=== PATIENT | female | born 1975 | race Caucasian/White ===

== ENCOUNTER 2017-01-08 20:06 | Emergency (ER) | payer BC ==
[2017-01-08] MEDS ORDERED: Ketorolac INJ* 30 MG/ML 1 ML VIAL IV ONE (23:21)
[2017-01-08] MEDS ORDERED: NS 0.9% 1000 ML* 1,000 ML IV ONE (23:21)
[2017-01-08 23:38] LABS: Hematocrit 37 % (35-47); Hemoglobin 12.4 g/dl (12.0-16.0); Mean Corpuscular HGB Conc 33 g/dl (31-36); Mean Corpuscular Hemoglobin 28 pg (27-31); Mean Corpuscular Volume 86 fL (80-97); Mean Platelet Volume 8 um3 (7.4-10.4); Red Blood Count 4.36 10^6/ul (4.0-5.4); Red Cell Distribution Width 14 % (10.5-15); White Blood Count 15.9 10^3/ul (3.5-10.8)
--- NOTE | 2017-01-08 23:52 | ED ---
Latoya Torres Edward, scribed for Antonio Gustafson MD on 01/08/17 at 2316 . GI/ HPI - HPI Summary HPI Summary: 41 y/o presents to ED c/o R flank pain starting 1 day ago. The pain is described as a soreness and has gotten worse since it started. The pain was aggravated by standing and ambulating today. Patient rates the pain at a 5/10 at triage. Pt went to [facility] and was dx with a kidney stone earlier today. Denies nausea. PMHx kidney stones. - History of Current Complaint Chief Complaint: EDFlankPain Time Seen by Provider: 01/08/17 23:14 Stated Complaint: RT SIDE PAIN Hx Obtained From: Patient Onset/Duration: Started Days Ago, Still Present Timing: Lasting Days Severity: Mild Current Severity: Moderate Pain Intensity: 5 Location of Pain: Flank - R side Pain Characteristics: Other: - Soreness Associated Signs and Symptoms: Positive: Flank Pain - R side. Negative: Nausea - Allergy/Home Medications Allergies/Adverse Reactions: Allergies Allergy/AdvReac Type Severity Reaction Status Date / Time Codeine Allergy GI Upset Verified 01/08/17 20:50 Sulfa Antibiotics Allergy Hives Verified 01/08/17 20:50 PMH/Surg Hx/FS Hx/Imm Hx Previously Healthy: No History: Reports: Hx Kidney Stones, Other Problems/Disorders - UTI many years ago - Surgical History Surgery Procedure, Year, and Place: Infectious Disease History: Denies: Traveled Outside the [place] in Last 30 Days - Family History Known Family History: Negative: Cardiac Disease, Hypertension, Diabetes - Social History Occupation: Employed Full-time Lives: With Family Alcohol Use: None Hx Substance Use: No Substance Use Type: Reports: None Review of Systems Constitutional: Negative Eyes: Negative ENT: Negative Cardiovascular: Negative Respiratory: Negative Gastrointestinal: Negative Negative: Nausea Positive: flank pain - R side Musculoskeletal: Negative Skin: Negative Neurological: Negative Psychological: Normal All Other Systems Reviewed And Are Negative: Yes Physical Exam Triage Information Reviewed: Yes Vital Signs On Initial Exam: Initial Vitals Temp Pulse Resp Pulse Ox 98.2 F 111 16 98 01/08/17 20:40 01/08/17 20:40 01/08/17 20:40 01/08/17 20:40 Vital Signs Reviewed: Yes Appearance: Positive: Well-Appearing, Pain Distress - mild discomfort Skin: Positive: Warm Head/Face: Positive: Normal Head/Face Inspection Eyes: Positive: [place] ENT: Positive: Hearing grossly normal Neck: Positive: Supple Respiratory/Lung Sounds: Positive: Clear to Auscultation, Breath Sounds Present Cardiovascular: Positive: RRR Abdomen Description: Positive: Nontender, Soft. Negative: CVA Tenderness (R), CVA Tenderness (L) Bowel Sounds: Positive: Present Musculoskeletal: Positive: Strength/ROM Intact Neurological: Positive: Alert, Oriented to Person Place, Time, Normal Gait Psychiatric: Positive: Affect/Mood Appropriate Diagnostics - Vital Signs Vital Signs Temp Pulse Resp BP Pulse Ox 01/08/17 22:55 98.2 F 79 16 117/68 100 01/08/17 20:40 98.2 F 111 16 98 - Laboratory Lab Results: Lab Results 01/08/17 Range/Units 23:25 WBC 15.9 H (3.5-10.8) 10^3/ul RBC 4.36 (4.0-5.4) 10^6/ul Hgb 12.4 (12.0-16.0) g/dl Hct 37 (35-47) % MCV 86 (80-97) fL MCH 28 (27-31) pg MCHC 33 (31-36) g/dl RDW 14 (10.5-15) % Plt Count 288 (150-450) 10^3/ul MPV 8 (7.4-10.4) um3 Neut % (Auto) 73.5 (38-83) % Lymph % (Auto) 17.1 L (25-47) % [place] % (Auto) 7.4 (1-9) % Eos % (Auto) 0.9 (0-6) % Baso % (Auto) 1.1 (0-2) % Absolute Neuts (auto) 11.7 H (1.5-7.7) 10^3/ul Absolute Lymphs (auto) 2.7 (1.0-4.8) 10^3/ul Absolute Monos (auto) 1.2 H (0-0.8) 10^3/ul Absolute Eos (auto) 0.1 (0-0.6) 10^3/ul Absolute Basos (auto) 0.2 (0-0.2) 10^3/ul Absolute Nucleated RBC 0 10^3/ul Nucleated RBC % 0 Result Diagrams: 01/08/17 23:25 01/08/17 23:25 Lab Statement: Any lab studies that have been ordered have been reviewed, and results considered in the medical decision making process. - Ultrasound No standard instances Ultrasound Interpretation: Positive (See Comments) - MILD RIGHT HYDRONEPHROSIS MAY BE DUE TO A NONVISUALIZED URETERAL STONE Ultrasound Interpretation Completed By: Radiologist Re-Evaluation - Re-Evaluation First Eval Comment: case d/w dr charlton, rec u/s to assess jet flow, may be d/c home f/u office GIGU Course/Dx - Course Assessment/Plan: 41 y/o presents to ED c/o R flank pain starting 1 day ago. The pain is described as a soreness and has gotten worse since it started. The pain was aggravated by standing and ambulating today. Patient rates the pain at a 5/ 10 at triage. Pt went to [facility] and was dx with a kidney stone earlier today. Denies nausea. PMHx kidney stones. RENAL US SHOWS MILD RIGHT HYDRONEPHROSIS MAY BE DUE TO A NONVISUALIZED URETERAL STONE. Pt will be d/c home with f/u with Dr. Charlton (Urology) in the morning. - Diagnoses Provider Diagnoses: Renal colic Discharge - Discharge Plan Condition: Improved Disposition: HOME Prescriptions: Levofloxacin TAB* [Levaquin TAB*] 250 mg PO DAILY #7 tab Patient Education Materials: Renal Colic (ED) Referrals: Albert Charlton MD [Medical Doctor] - 1 Day (Please f/u in the morning) The documentation as recorded by the Latoya chaves Edward accurately reflects the service I personally performed and the decisions made by , Antonio Gustafson MD.
[2017-01-08 23:56] LABS: ALT 16 U/L (7-52); AST 14 U/L (13-39); Albumin 4.2 g/dL (3.2-5.2); Alkaline Phosphatase 53 U/L (34-104); BUN/Creatinine Ratio 13.3 (8-20); Blood Urea Nitrogen 12 mg/dL (6-24); C Reactive Protein 4.06 mg/L (< 5.00); CO2 Carbon Dioxide 26 mmol/L (22-32); Calcium 9.2 mg/dL (8.6-10.3); Chloride 104 mmol/L (101-111); EGFR African American 89.2 (>60); EGFR Non-African American 69.3 (>60); Glucose 87 mg/dL (70-100); Magnesium 2.1 mg/dL (1.9-2.7); Potassium 3.9 mmol/L (3.5-5.0); Total Protein 7.2 g/dL (6.4-8.9)
[2017-01-09 00:35] LABS: Anion Gap 5 mmol/L (2-11); Sodium 135 mmol/L (133-145)
[2017-01-09 01:23] LABS: Urine Bacteria Absent (Absent); Urine Bilirubin Negative (Negative); Urine Glucose 1+(50 mg/dL) (Negative); Urine Nitrite Negative (Negative)
[2017-01-09] MEDS ORDERED: Levofloxacin 500 MG IVPREMIX(* 500 MG/100 ML BAG IVPB ONE (01:29)
[2017-01-09] MEDS ORDERED: NS 0.9% 1000 ML* 1,000 ML IV ONE (02:16)
[2017-01-09] MEDS ORDERED: oxyCODONE/Acetamin 5/325 MG* TAB PO ONE (03:58)
[2017-01-09 04:14] VITALS: BP 105/55
--- NOTE | 2017-01-09 08:06 | RAD ---
Indication: Right flank pain. Real-time sonography of the right kidney was performed. The right kidney measures 11.4 cm x 5.1 cm x 5.5 cm. Right hydronephrosis is noted. Bilateral ureteral jets are noted. Bilateral ureteral jets are noted. IMPRESSION: Right hydronephrosis. Bilateral ureteral jets are identified.
== END 2017-01-09 04:14 | disposition home or self-care (01) ==
LOC: ED 20:06
DX: N23 Unspecified renal colic (principal); N13.30 Unspecified hydronephrosis; Z32.02 Encounter for pregnancy test, result negative; Z87.442 Personal history of urinary calculi; Z88.5 Allergy status to narcotic agent; Z88.2 Allergy status to sulfonamides
CPT/HCPCS: 36415; 76775; 80053; 81003; 81015; 83605; 83735; 84702; 85025; 86140; 87086; 96361; 96365; 96375; 99283; A9270-GY; J1885; J1956

== ENCOUNTER 2017-01-11 10:34 | Day surgery (SDC) | payer BC ==
--- NOTE | 2017-01-10 14:43 | HP ---
CC: Dr. Kirsten Harp * ADMITTING HISTORY AND PHYSICAL: DATE OF ADMISSION: 01/11/17 - [facility] ADMITTING DIAGNOSES: 1. Right hydronephrosis. 2. Calculus, right mid ureter. 3. Left renal calculus. PLANNED PROCEDURE: Right ureteroscopy, possible laser, and stent insertion (to be followed in the near future by left stent insertion and left renal calculus lithotripsy). SURGEON: Dr. Charlton. 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 She was noted to have an approximately 7-mm calculus at the junction of the [id number] right ureter, which has been persistent in the same location and she is now being brought in for right ureteroscopy, possible laser, and stent. In addition, she has a 1-cm calculus in the left renal pelvis, which is currently asymptomatic, but will require left stent insertion and lithotripsy in the near future. PAST MEDICAL HISTORY: Significant for kidney stones 5 or 6 years ago. PAST SURGICAL HISTORY: Significant for x2. MEDICATIONS: On admission, Vicodin p.r.n. ALLERGIES AND INTOLERANCES: CODEINE and SULFA (hives with both). FAMILY HISTORY: Significant in that her brother has had kidney stones. SMOKING HISTORY: She is a nonsmoker. REVIEW OF SYSTEMS: She is otherwise in excellent health. There is no history of diabetes mellitus or any other major systemic illness. She denies any chest pain or shortness of breath. PHYSICAL EXAMINATION GENERAL: Reveals a pleasant, uncomfortable-appearing young lady. VITAL SIGNS: Blood pressure is 120/80; pulse 70 per minute, regular; temperature 97.5; oxygen saturation 98% on room air. LUNGS: Clear bilaterally. CARDIOVASCULAR: Regular rate and rhythm. S1, S2. ABDOMEN: Soft with right flank tenderness. IMPRESSION AND PLAN: I reviewed the imaging studies from [place] and the ultrasound done in my office and had a detailed discussion with the patient and her regarding the management options. I discussed trying to continue conservative therapy, but because of the degree of pain and the fact that the stone has not made any significant distal progress, she would like to proceed with right ureteroscopy. I also discussed the calculus in the left kidney and the procedure of left stent insertion and lithotripsy, which would be done after resolution of the right-sided stone. [id number]/[facility] #: [id number] [facility]
[~2017-01-11 10:34] MED LIST: Buffered Lidocaine 0.9% SYRIN* 5 ML/SYR SYRINGE INTRADERM ONE; Dexamethasone IV* 4 MG/ML 1 ML (4 MG) IV SLOW PU ONE; Famotidine IV* 10 MG/ML 2 ML (20 mg) IV ONE
[2017-01-11] MEDS ORDERED: Famotidine IV* 10 MG/ML 2 ML (20 mg) ONE (10:41)
[2017-01-11] MEDS ORDERED: Dexamethasone IV* 4 MG/ML 1 ML (4 MG) ONE (10:41)
[2017-01-11] MEDS ORDERED: cefTRIAXone(*) 2 GM ADDV.VIAL IVPB ONE (10:42)
[2017-01-11] MEDS ORDERED: Buffered Lidocaine 0.9% SYRIN* 5 ML/SYR SYRINGE ONE (10:42)
[2017-01-11] MEDS ORDERED: Midazolam* 1 MG/ML 5 ML VIAL (5 MG) ONE (11:13)
[2017-01-11] MEDS ORDERED: Iohexol 180 (CONTRAST) 10 ML SDV IV ONE (11:24)
[2017-01-11] MEDS ORDERED: Ondansetron INJ* 2 MG/ML VIAL ONE (11:39)
[2017-01-11] MEDS ORDERED: Ketorolac INJ* 30 MG/ML 1 ML VIAL ONE (11:39)
[2017-01-11] MEDS ORDERED: Chloroprocaine 2%* 20 ML VIAL ONE (11:39)
[2017-01-11] MEDS ORDERED: DiMENhydriNATE IV* 50 MG/ML VIAL IV PUSH PRN (12:00)
[2017-01-11] MEDS ORDERED: oxyCODONE/Acetamin 5/325 MG* TAB PO PRN (12:00)
[2017-01-11] MEDS ORDERED: Ondansetron INJ* 2 MG/ML VIAL IV PRN (12:00)
[2017-01-11] MEDS ORDERED: fentaNYL* 50 MCG/ML 2 ML VIAL (100 MCG VIAL) IV PRN (12:00)
[2017-01-11] MEDS ORDERED: Scopolamine 1.5 mg* PATCH TRANSDERM PRN (12:00)
[2017-01-11] MEDS ORDERED: Propofol* 10 MG/ML 20 ML BTL IV PUSH ONE (12:19)
[2017-01-11] MEDS ORDERED: Solifenacin(NF) 5 MG TAB PO ONE (14:00)
--- NOTE | 2017-01-11 14:07 | RAD ---
INDICATION: Right ureteral lithotripsy and stent placement COMPARISON: KUB January 10, 2017 FINDINGS: 12 seconds of fluoroscopy were provided for the urology department. Fluoroscopic spot imaging of the abdomen were obtained for operative control and show right ureteral stent placement . CPT II Codes: 6045F (fluoro time doc)
[2017-01-11 14:58] VITALS: BP 126/79
--- NOTE | 2017-01-11 15:58 | RAD ---
Indication: Stent insertion Single view of the abdomen demonstrates right ureteral stent in place. Calculi overlying the midportion of the left kidney. IMPRESSION: Right ureteral stent is in place.
--- NOTE | 2017-01-12 03:02 | OP ---
CC: Kirsten Harp MD * DATE OF OPERATION: 01/11/17 - [facility] DATE OF : 77 SURGEON: Albert Charlton MD. ANESTHESIOLOGIST: Dr. Keller. ANESTHESIA: Spinal. PRE-OP DIAGNOSES: 1. Right hydronephrosis 2. Obstructing calculus, right ureter. POST-OP DIAGNOSES: 1. Right hydronephrosis 2. Obstructing calculus, right ureter. 3. Stricture, right ureter. OPERATIVE PROCEDURE: Cystoscopy, right retrograde pyelogram, right ureteroscopy , laser lithotripsy of right ureteral calculus, removal of calculus fragments, and right stent insertion. INDICATIONS: Padmaja Godwin is a 41-year-old lady who was evaluated for an obstructing right ureteral calculus. In addition, she has a large left renal calculus, which will require treatment in the near future. COMPLICATIONS: None. STENT USED: 8.5-Hong Konger 28 cm silicone stent, right ureter. POSTOPERATIVE CONDITION: Stable. OPERATIVE FINDINGS: 1. Normal-appearing bladder. 2. High-grade obstruction right ureter secondary to approximately 1 cm calculus junction of right mid and distal ureter with stricture below the site of calculus. DESCRIPTION OF PROCEDURE: After induction of spinal anesthesia, the patient was placed in dorsal lithotomy position. Sequential compression devices were in place and functioning. Initial cystoscopy revealed a normal-appearing bladder. A guidewire was introduced into the right ureter. Retrograde pyelogram revealed right hydronephrosis with significantly dilated tortuous proximal right ureter suggesting that the obstructive process has been going on for a while. A 6-H[place] Konger semi-rigid ureteroscope was introduced and advanced under direct vision. At the junction of the mid and distal right ureter, a fairly large 9-10 mm calculus was noted to be impacted with surrounding inflammatory response. Just below the site of impaction, there was a stricture in the ureter, which is probably what kept the stone from migrating distally. Using a 550 micron Holmium laser, the calculus was successfully broken up into multiple fragments and all of the sizable fragments were removed. The ureteroscope was advanced into the proximal ureter to make sure there were no additional sizable fragments and none were noted. An 8.5 [place]er 28 cm silicone stent was introduced and positioned under fluoroscopy with good proximal and distal positioning obtained. The patient tolerated the procedure satisfactorily and was transferred back to the recovery area in stable condition. [id number]/[facility] #: [id number] [facility]
[2017-01-14] MEDS ORDERED: Scopolomine PATCH Remove* 1 NOTE MISC PATCH OFF ONE (12:01)
== END 2017-01-11 14:58 | disposition home or self-care (01) ==
LOC: OR 10:34
PROVIDERS: ATTEND Urology
DX: N13.2 Hydronephrosis with renal and ureteral calculous obstruction (principal); N13.5 Crossing vessel and stricture of ureter without hydronephrosis
CPT/HCPCS: 74000; 74420; 81025; 82365; 88300; C1876; J0696; J1100; J1580; J1885; J2250; J2400; J2405; J2704

== ENCOUNTER 2017-04-01 07:30 | Day surgery (SDC) | payer BC ==
--- NOTE | 2017-03-28 21:36 | HP ---
CC: Dr. Kirsten Harp* ADMITTING HISTORY AND PHYSICAL: DATE OF ADMISSION: 04/01/17 PREOPERATIVE DIAGNOSIS: Left renal calculus. PLANNED PROCEDURE: Shockwave lithotripsy, left renal calculus and left stent insertion. SURGEON: Dr. Charlton. HISTORY OF PRESENT ILLNESS: Padmaja Godwin is a 41-year-old lady with a history of bilateral renal calculi. She had previously been successfully treated for an obstructing calculus in the right ureter. Recent ultrasound had revealed a 1.2 cm calculus in the mid pole of the left kidney and she is now being brought in for treatment of the same. PAST MEDICAL HISTORY: Significant for renal calculi. PAST SURGICAL HISTORY: Significant for right ureteroscopy and C section x2. MEDICATIONS ON ADMISSION: None. ALLERGIES AND INTOLERANCES: SULFA and CODEINE (hives). SMOKING HISTORY: Nonsmoker. REVIEW OF SYSTEMS: She is otherwise in excellent health. There is no history of any other major systemic illness. She denies any chest pain or shortness of breath. PHYSICAL EXAMINATION GENERAL: Reveals a pleasant healthy-appearing, young lady. VITAL SIGNS: Blood pressure is 118/78, pulse 70 per minute, temperature 97.7, oxygen saturation 99% on room air. LUNGS: Clear bilaterally. CARDIOVASCULAR: Regular rate and rhythm, S1, S2. ABDOMEN: Soft with mild left flank tenderness. IMPRESSION: An 41-year-old lady with a 1.2 cm calculus in the left kidney. I have discussed the procedure of lithotripsy including possible risks of bleeding , infection, incomplete fragmentation. PLAN: Plan is for left stent insertion and shockwave lithotripsy of left renal calculus. [id number]/[facility] #: [id number] [facility]
[~2017-04-01 07:30] MED LIST changes: +Buffered Lidocaine 0.9% SYRIN* 5 ML/SYR SYRINGE ONE; +Dexamethasone IV* 4 MG/ML 1 ML (4 MG) ONE; +Famotidine IV* 10 MG/ML 2 ML (20 mg) ONE; +cefTRIAXone(*) 2 GM ADDV.VIAL IVPB ONE
[2017-04-01] MEDS ORDERED: Iohexol 180 (CONTRAST) 10 ML SDV IV ONE (08:47)
[2017-04-01] MEDS ORDERED: fentaNYL* 50 MCG/ML 2 ML VIAL (100 MCG VIAL) ONE ×2 (08:52→10:58)
[2017-04-01] MEDS ORDERED: Midazolam* 1 MG/ML 2 ML VIAL (2 MG) ONE (08:52)
--- NOTE | 2017-04-01 09:05 | RAD ---
INDICATION: Left renal calculus COMPARISON: Similar examination January 11, 2017 TECHNIQUE: 2 views the abdomen were obtained. FINDINGS: There is been interval removal of a right-sided ureteral stent. There are no large calcifications overlying the expected location of the right kidney or ureter. Overlying the expected location of the left renal collecting system is an 8 mm calcification that appears unchanged from the previous KUB. IMPRESSION: ABOVE.
[2017-04-01] MEDS ORDERED: Propofol* 10 MG/ML 20 ML BTL IV PUSH ONE (09:27)
[2017-04-01] MEDS ORDERED: Ondansetron INJ* 2 MG/ML VIAL ONE (09:27)
[2017-04-01] MEDS ORDERED: fentaNYL* 50 MCG/ML 2 ML VIAL (100 MCG VIAL) IV PRN (10:26)
[2017-04-01] MEDS ORDERED: Scopolamine 1.5 mg* PATCH ONE (10:51)
[2017-04-01] MEDS ORDERED: DiMENhydriNATE IV* 50 MG/ML VIAL ONE (10:51)
[2017-04-01 12:04] VITALS: BP 112/58
--- NOTE | 2017-04-02 01:45 | OP ---
CC: Dr. Kirsten Harp; Dr. Charlton* OPERATIVE SUMMARY: DATE OF OPERATION: 04/01/17 - [facility] DATE OF : 77 SURGEON: Albert Charlton MD. ANESTHESIOLOGIST: Forrest Mcarthur MD ANESTHESIA: General. PRE-OP DIAGNOSES: Left renal calculus. POST-OP DIAGNOSES: Left renal calculus. OPERATIVE PROCEDURE: 1. Cystoscopy, left retrograde pyelogram, left ureteral stent insertion. 2. Shockwave lithotripsy of left renal calculus. COMPLICATIONS: None. STENT USED: A 6-Cambodian stent left ureter. POSTOPERATIVE CONDITION: Stable. INDICATIONS: Padmaja Godwin is a 41-year-old lady who had previously been successfully treated for a right-sided calculus. She was noted to have a 1.2 cm calculus in the left kidney and is now being brought in for treatment of the same. DESCRIPTION OF PROCEDURE: After induction of general anesthesia, the patient was placed in dorsal lithotomy position. Sequential compression devices were in place and functioning. Initial cystoscopy revealed a normal appearing bladder. Left retrograde pyelogram was performed. The calculus was seen in the mid pole calyx in the left kidney. A 6-Cambodian stent was introduced and positioned under fluoroscopy with good proximal and distal positioning obtained. Next, the patient was placed on the lithotripsy table in supine position. The calculus was identified on fluoroscopy and shockwave lithotripsy was commenced initially at a rate of 90 shocks per minute, later changed to 60 shocks per minute. After the initial 300 shocks, there was a pause in lithotripsy for several minutes in an effort to minimize any potential trauma to the kidney. Periodic imaging revealed good localization and fragmentation and 2400 shocks were administered. The patient tolerated the procedure satisfactorily and was transferred back to the recovery area in stable condition. [id number]/[facility] #: [id number] [facility]
== END 2017-04-01 13:16 | disposition home or self-care (01) ==
LOC: OR 07:30
PROVIDERS: ATTEND Urology
DX: N20.0 Calculus of kidney (principal)
CPT/HCPCS: 74000; 81025; A9270-GY; C1876; J0696; J1100; J1240; J2250; J2405; J2704; J3010